=== PATIENT | female | born 2000 | race Caucasian/White ===

== ENCOUNTER 2021-02-13 13:43 | Emergency (ER) | payer SELFPAY ==
[~2021-02-13] VITALS: Ht 147 cm; Wt 43.9 kg
[~2021-02-13 13:43] MED LIST: ONDA8TAB9 PO
--- NOTE | 2021-02-13 14:26 | ED GU-Female ---
General Chief Complaint: - Reproductive Stated Complaint: SPOTTING/CRAMPING ISSUE WITH IUD Nursing Triage Note: PT PRESENTS TO ED VIA POV FROM HOME WITH COMPLAINTS OF SPOTTING/ABDOMINAL PAIN X 2 DAYS AFTER HAVING INTERCOURSE. PT REPORTS SHE TRIED TO FIND HER IUD STRINGS AFTER AND REPORTS SHE HAS NOT BEEN ABLE TO. Source: patient Exam Limitations: no limitations History of Present Illness Date Seen by Provider: Feb 13, 2021 Time Seen by Provider: 14:15 Initial Comments This is a well-appearing 20-year-old female who presented to the ER with complaints of spotting and abdominal cramping 2 days after having intercourse with her boyfriend. States that she does have an IUD and has been present for the past 1-1/2 years. This morning she attempted to find the strings and has not been able to. Allergies and Home Medications Allergies Coded Allergies: No Known Drug Allergies (Unverified , 11/10/09) Patient Home Medication List No Active Prescriptions or Reported Meds Past Juglbqg-Javrfh-Vpkeqa Hx Patient Social History Tobacco Use?: No Substance use?: No Alcohol Use?: Yes Alcohol Frequency: Once in a while Pt feels they are or have been: No Immunizations Up To Date Tetanus Booster (TDap): Less than 5yrs Past Medical History Surgery/Hospitalization HX: SX: T/A Reproductive Disorders: No Female Reproductive Disorders: Denies Family Medical History Cancer Physical Exam Vital Signs Vital Signs - First Documented 02/13/21 13:53 Temp 35.9 Pulse 89 Resp 18 B/P (MAP) 133/87 (102) Pulse Ox 100 Capillary Refill : Less Than 3 Seconds Height, Weight, BMI Height: 4'10" Weight: 80lbs. oz. 36.944464xs; 20.00 BMI Method:Stated Progress/Results/Core Measures Suspected Sepsis SIRS Temperature: Pulse: 89 Respiratory Rate: 18 Laboratory Tests 02/13/21 15:48: White Blood Count 7.9 Blood Pressure 133 /87 Mean: 102 Laboratory Tests 02/13/21 15:48: Creatinine 0.66, Platelet Count 250, Total Bilirubin 0.3 Results/Orders Lab Results Laboratory Tests Test 02/13/21 14:40 02/13/21 15:48 Range/Units Urine Color YELLOW Urine Clarity CLEAR Urine pH 5.5 5-9 Urine Specific [place] <=1.005 1.016-1.022 Urine Protein NEGATIVE NEGATIVE Urine Glucose (UA) NEGATIVE NEGATIVE Urine Ketones NEGATIVE NEGATIVE Urine Nitrite NEGATIVE NEGATIVE Urine Bilirubin NEGATIVE NEGATIVE Urine Urobilinogen 0.2 < = 1.0 MG/DL Urine Leukocyte Esterase TRACE H NEGATIVE Urine RBC (Auto) 2+ H NEGATIVE Urine RBC RARE /HPF Urine WBC RARE /HPF Urine Squamous Epithelial Cells 0-2 /HPF Urine Crystals NONE /LPF Urine Bacteria NEGATIVE /HPF Urine Casts NONE /LPF Urine Mucus NEGATIVE /LPF Urine Culture Indicated NO White Blood Count 7.9 4.3-11.0 10^3/uL Red Blood Count 4.19 3.80-5.11 10^6/uL Hemoglobin 12.5 11.5-16.0 g/dL Hematocrit 39 35-52 % Mean Corpuscular Volume 92 80-99 fL Mean Corpuscular Hemoglobin 30 25-34 pg Mean Corpuscular Hemoglobin Concent 32 32-36 g/dL Red Cell Distribution Width 12.2 10.0-14.5 % Platelet Count 250 130-400 10^3/uL Mean Platelet Volume 9.5 9.0-12.2 fL Immature Granulocyte % (Auto) 1 % Neutrophils (%) (Auto) 66 42-75 % Lymphocytes (%) (Auto) 24 12-44 % Monocytes (%) (Auto) 6 0-12 % Eosinophils (%) (Auto) 3 0-10 % Basophils (%) (Auto) 1 0-10 % Neutrophils # (Auto) 5.2 1.8-7.8 10^3/uL Lymphocytes # (Auto) 1.9 1.0-4.0 10^3/uL Monocytes # (Auto) 0.5 0.0-1.0 10^3/uL Eosinophils # (Auto) 0.2 0.0-0.3 10^3/uL Basophils # (Auto) 0.1 0.0-0.1 10^3/uL Immature Granulocyte # (Auto) 0.1 0.0-0.1 10^3/uL Sodium Level 139 135-145 MMOL/L Potassium Level 3.9 3.6-5.0 MMOL/L Chloride Level 107 98-107 MMOL/L Carbon Dioxide Level 23 21-32 MMOL/L Anion Gap 9 5-14 MMOL/L Blood Urea Nitrogen 13 7-18 MG/DL Creatinine 0.66 0.60-1.30 MG/DL Estimat Glomerular Filtration Rate 113 BUN/Creatinine Ratio 20 Glucose Level 96 70-105 MG/DL Calcium Level 9.5 8.5-10.1 MG/DL Corrected Calcium 9.3 8.5-10.1 MG/DL Total Bilirubin 0.3 0.1-1.0 MG/DL Aspartate Amino Transf (AST/SGOT) 12 5-34 U/L Alanine Aminotransferase (ALT/SGPT) 11 0-55 U/L Alkaline Phosphatase 66 40-136 U/L Total Protein 7.0 6.4-8.2 GM/DL Albumin 4.3 3.2-4.5 GM/DL My Orders Orders - RODRIGO ORTEGA TENNIS DIRECTOR Ua Culture If Indicated (02/13/21 13:49) Pelvis (02/13/21 14:42) Cbc With Automated Diff (02/13/21 15:16) Comprehensive Metabolic Panel (02/13/21 15:16) Vital Signs/I&O 02/13/21 13:53 Temp 35.9 Pulse 89 Resp 18 B/P (MAP) 133/87 (102) Pulse Ox 100 Capillary Refill : Less Than 3 Seconds Blood Pressure Mean: 102 Departure Impression Primary Impression: Abdominal cramping Additional Impression: IUD check up Disposition: 01 HOME, SELF-CARE Condition: Improved Departure-Patient Inst. Decision time for Depature: 16:31 Referrals: [facility] [place] (PCP/Family) Primary Care Physician Patient Instructions: Abdominal Pain, Adult ED, LOCAL PHYSICIAN LIST Add. Discharge Instructions: Plan: 1. Establish with primary care provider of your choice. 2. May take Tylenol or Ibuprofen as needed for pain per package. 3. Return for any new, concerning, or worsening symptoms. All discharge instructions reviewed with patient and/or family. Voiced understa nding. Scripts No Active Prescriptions or Reported Meds RODRIGO ORTEGA TENNIS DIRECTOR Feb 13, 2021 14:26
[2021-02-13 14:54] LABS: BILIRUBIN,URINE NEGATIVE (NEGATIVE); CLARITY,URINE CLEAR; COLOR,URINE YELLOW; GLUCOSE, URINE (UA) NEGATIVE (NEGATIVE); KETONES,URINE NEGATIVE (NEGATIVE); LEUKOCYTE ESTERASE ,URINE TRACE (NEGATIVE); NITRITE,URINE NEGATIVE (NEGATIVE); PH,URINE 5.5 (5-9); PROTEIN,URINE NEGATIVE (NEGATIVE)
--- NOTE | 2021-02-13 15:11 | Diagnostic Imaging Report ---
HISTORY: IUD placement. TECHNIQUE: Frontal view of the pelvis. COMPARISON: None. FINDINGS: The intrauterine device appears to be in appropriate position on this single frontal view. No acute osseous abnormality is seen in the pelvis, and alignment appears normal. IMPRESSION: 1. IUD placement appears normal on this single radiograph. Dictated by: Dictated on workstation # [id number]
[2021-02-13 15:14] LABS: BACTERIA,URINE NEGATIVE /HPF; RBC,URINE RARE /HPF; SQUAMOUS EPITHELIAL CELL,UR 0-2 /HPF; WBC,URINE RARE /HPF
[2021-02-13 15:58] LABS: BASOPHILS # (AUTO) 0.1 10^3/uL (0.0-0.1); BASOPHILS % (AUTO) 1 % (0-10); EOSINOPHILS # (AUTO) 0.2 10^3/uL (0.0-0.3); EOSINOPHILS % (AUTO) 3 % (0-10); HEMATOCRIT 39 % (35-52); HEMOGLOBIN 12.5 g/dL (11.5-16.0); LYMPHOCYTES # (AUTO) 1.9 10^3/uL (1.0-4.0); LYMPHOCYTES % (AUTO) 24 % (12-44); MEAN CORPUSCULAR HEMOGLOBIN 30 pg (25-34); MEAN CORPUSCULAR HGB CONC 32 g/dL (32-36); MEAN CORPUSCULAR VOLUME 92 fL (80-99); MEAN PLATELET VOLUME 9.5 fL (9.0-12.2); MONOCYTES # (AUTO) 0.5 10^3/uL (0.0-1.0); MONOCYTES % (AUTO) 6 % (0-12); NEUTROPHILS # (AUTO) 5.2 10^3/uL (1.8-7.8); NEUTROPHILS % (AUTO) 66 % (42-75); PLATELET COUNT 250 10^3/uL (130-400); WHITE BLOOD COUNT 7.9 10^3/uL (4.3-11.0)
[2021-02-13 16:06] LABS: ALBUMIN 4.3 GM/DL (3.2-4.5); POTASSIUM 3.9 MMOL/L (3.6-5.0)
[2021-02-13 16:07] LABS: CALCIUM 9.5 MG/DL (8.5-10.1)
[2021-02-13 16:10] LABS: BILIRUBIN,TOTAL 0.3 MG/DL (0.1-1.0)
[2021-02-13 16:12] LABS: CREATININE SERUM 0.66 MG/DL (0.60-1.30)
[2021-02-13 16:39] VITALS: BP 105/62
== END 2021-02-13 16:38 | disposition home or self-care (01) ==
LOC: EDUNIT# 13:43 → ER 13:46
DX: R10.9 Unspecified abdominal pain (principal)
CPT/HCPCS: 36415; 72170; 80053; 81000; 85025

== ENCOUNTER 2021-10-05 15:33 | Emergency (ER) | payer MEDICAID ==
[~2021-10-05] VITALS: Ht 147.3 cm; Wt 44.0 kg
--- NOTE | 2021-10-05 16:26 | ED GU-Female ---
General Chief Complaint: - Reproductive Stated Complaint: VAGINAL PAIN Source: patient Exam Limitations: no limitations (TON SINGER) History of Present Illness Date Seen by Provider: Oct 05, 2021 Time Seen by Provider: 16:23 Initial Comments Patient is a 20-year-old female who presents the ED with concern for vaginal pain, lower pelvic pain for the past week. Described as crampy with intermittent sharp pain without radiation. She reported vaginal discharge whitish with a mix of brown without any odor. Currently sexually active. She reports pain after sexual intercourse. She denies any urinary symptoms or concern for . She does have a IUD and reports pain and discomfort with her IUD over the past few months. This pain has become worse over the past week. She is requesting her IUD removed. She states she is able to feel the string. She states she got the IUD 3 years ago. She has not had her menstrual cycle since August. Denies fever, chills, nausea, vomiting, diarrhea. She went to [facility] who told her to come to the ED (TON SINGER) Allergies and Home Medications Allergies Coded Allergies: No Known Drug Allergies (Unverified , 11/10/09) Patient Home Medication List Home Medication List Reviewed: Yes (TON SINGER) No Active Prescriptions or Reported Meds Review of Systems Review of Systems Constitutional: No chills, No diaphoresis, No malaise, No weakness EENTM: No hearing loss, No ear pain, No blurred vision, No double vision Respiratory: No cough, No dyspnea on exertion Cardiovascular: No chest pain, No edema Gastrointestinal: No abdominal pain, No diarrhea, No nausea, No vomiting Genitourinary: denies burning, denies discharge, denies dysuria, denies frequency; other (vaginal discharge) Musculoskeletal: No back pain, No joint pain Skin: No change in color, No change in hair/nails (TON SINGER) All Other Systemes Reviewed Negative Unless Noted: Yes (TON SINGER) Past Mnccgqq-Dcrikr-Sykxeu Hx Patient Social History Tobacco Use?: No Smoking Status: Never a Smoker Smokeless Tobacco Frequency: Never a User Use of E-Cig and/or Vaping dev: No Use of E-Cig and/or Vaping Rikki: Never a User Substance use?: Yes Substance type: Marijuana Substance frequency: Daily Alcohol Use?: Yes Alcohol Frequency: Couple times a week Pt feels they are or have been: No (TON SINGER) Immunizations Up To Date Tetanus Booster (TDap): Less than 5yrs (TON SINGER) Past Medical History Surgery/Hospitalization HX: SX: T/A Reproductive Disorders: No Female Reproductive Disorders: Denies (TON SINGER) Family Medical History Cancer (TON SINGER) Physical Exam Vital Signs Vital Signs - First Documented 10/05/21 15:54 Temp 36.6 Pulse 74 Resp 19 B/P (MAP) 139/72 (94) O2 Delivery Room Air (BEN HARE MD) Vital Signs Capillary Refill : (TON SINGER) Height, Weight, BMI Height: 4'10" Weight: 80lbs. oz. 36.415262gh; 20.00 BMI Method:Stated General Appearance: WD/WN, no apparent distress HEENT: PERRL/EOMI, normal ENT inspection, TMs normal, pharynx normal Neck: non-tender, full range of motion, supple, normal inspection Cardiovascular: regular rate, rhythm, no edema, no gallop, no JVD Respiratory: chest non-tender, lungs clear, normal breath sounds, no respiratory distress Gastrointestinal: normal bowel sounds, soft, no organomegaly, no pulsatile mass, other (Left lower quadrant tenderness) Back: normal inspection, no CVA tenderness, no vertebral tenderness Extremities: normal range of motion, non-tender, normal inspection, no pedal edema Neurologic/Psychiatric: recruiting team lead II-XII nml as tested, no motor/sensory deficits, alert, normal mood/affect, oriented x 3 Skin: normal color, warm/dry (TON SINGER) Progress/Results/Core Measures Suspected Sepsis SIRS Temperature: Pulse: Respiratory Rate: Blood Pressure / Mean: (OTN SINGER) Results/Orders Lab Results Laboratory Tests Test 10/05/21 15:55 10/05/21 16:21 10/05/21 16:24 Range/Units Urine Color YELLOW Urine Clarity CLEAR Urine pH 6.0 5-9 Urine Specific [place] >=1.030 1.016-1.022 Urine Protein NEGATIVE NEGATIVE Urine Glucose (UA) NEGATIVE NEGATIVE Urine Ketones NEGATIVE NEGATIVE Urine Nitrite NEGATIVE NEGATIVE Urine Bilirubin NEGATIVE NEGATIVE Urine Urobilinogen 0.2 < = 1.0 MG/DL Urine Leukocyte Esterase NEGATIVE NEGATIVE Urine RBC (Auto) TRACE-I H NEGATIVE Urine RBC 0-2 /HPF Urine WBC 2-5 /HPF Urine Squamous Epithelial Cells 5-10 /HPF Urine Renal Epithelial Cells NONE /HPF Urine Crystals NONE /LPF Urine Bacteria MODERATE H /HPF Urine Casts NONE /LPF Urine Mucus LARGE H /LPF Urine Culture Indicated YES Urine Test NEGATIVE NEGATIVE (BEN HARE MD) Micro Results Microbiology 10/05/21 Wet Prep - Final, Complete (BEN HARE MD) Vital Signs/I&O 10/05/21 15:54 Temp 36.6 Pulse 74 Resp 19 B/P (MAP) 139/72 (94) O2 Delivery Room Air (BEN HARE MD) Vital Signs/I&O Capillary Refill : (TON SINGER) Departure Communication (PCP) Intrauterine device noted on x-ray. She states she is able to feel the string. Refused pelvic exam. Boyfriend at bedside. She is not concern for sexual transmitted infection but reports discharge for the past week with some spotting. Negative for . Urinalysis negative for infection. Patient is having pelvic discomfort with similar type pain then in the past. She is wanting her IUD removed. Discussed this is typically is done outpatient with Imaging Manager. No evidence suggesting uterine rupture or displaced IUD. No evidence suggesting pelvic infection at this time. Avoid sexual course until results of cultures for gonorrhea and chlamydia. She was not treated prophylactically. She does not appear in acute distress. No surgical abdomen. Return precaution were discussed with patient. (TON SINGER) Impression Primary Impression: Pelvic pain Disposition: 01 HOME, SELF-CARE Condition: Stable Departure-Patient Inst. Decision time for Depature: 17:18 (TON SINGER) Referrals: [facility] (PCP/Family) Primary Care Physician DANILO THORNE DO Patient Instructions: Pelvic Pain ED Add. Discharge Instructions: Anti-inflammatories for pain. Follow-up with gynecology for further evaluation All discharge instructions reviewed with patient and/or family. Voiced understanding. Scripts No Active Prescriptions or Reported Meds ATTENDING PHYSICIAN NOTE: I was physically present as attending physician in the emergency department during the care of this patient, but I was not directly involved in the decision making or delivery of care for this patient. (BEN HARE MD) TON SINGER Oct 05, 2021 16:26 BEN HARE MD Oct 05, 2021 21:03
[2021-10-05 16:40] LABS: BILIRUBIN,URINE NEGATIVE (NEGATIVE); CLARITY,URINE CLEAR; COLOR,URINE YELLOW; GLUCOSE, URINE (UA) NEGATIVE (NEGATIVE); KETONES,URINE NEGATIVE (NEGATIVE); LEUKOCYTE ESTERASE ,URINE NEGATIVE (NEGATIVE); NITRITE,URINE NEGATIVE (NEGATIVE); PROTEIN,URINE NEGATIVE (NEGATIVE)
[2021-10-05 16:52] LABS: BACTERIA,URINE MODERATE /HPF; RBC,URINE 0-2 /HPF
--- NOTE | 2021-10-05 17:11 | Diagnostic Imaging Report ---
HISTORY: Left lower quadrant abdominal pain. COMPARISON: 04/09/2013 TECHNIQUE: Frontal view of the abdomen. FINDINGS: Bowel loops are nondistended without obstruction. There is moderate stool in the colon. No large collection of free air seen. An intrauterine device is noted. No acute osseous abnormality is seen. IMPRESSION:. Moderate stool in the colon, please correlate with any history of constipation. Dictated by: Dictated on workstation # [id number]
[2021-10-05 17:40] VITALS: BP 124/65
== END 2021-10-05 17:40 | disposition home or self-care (01) ==
LOC: EDUNIT# 15:33 → ER 15:36
DX: R10.2 Pelvic and perineal pain (principal); Z97.5 Presence of (intrauterine) contraceptive device; Z32.02 Encounter for pregnancy test, result negative
CPT/HCPCS: 36415; 74018; 81000; 84703; 87088; 87210; 87491; 87591; 99282

== ENCOUNTER 2022-07-14 11:57 | Emergency (ER) | payer MEDICAID ==
[~2022-07-14] VITALS: Ht 147 cm; Wt 45.3 kg
[2022-07-14 12:23] LABS: BASOPHILS % (AUTO) 0 % (0-10); EOSINOPHILS # (AUTO) 0.1 10^3/uL (0.0-0.3); EOSINOPHILS % (AUTO) 1 % (0-10); HEMATOCRIT 38 % (35-52); HEMOGLOBIN 12.5 g/dL (11.5-16.0); LYMPHOCYTES # (AUTO) 1.5 10^3/uL (1.0-4.0); LYMPHOCYTES % (AUTO) 22 % (12-44); MEAN CORPUSCULAR HEMOGLOBIN 30 pg (25-34); MEAN CORPUSCULAR HGB CONC 33 g/dL (32-36); MEAN CORPUSCULAR VOLUME 90 fL (80-99); MEAN PLATELET VOLUME 9.6 fL (9.0-12.2); MONOCYTES # (AUTO) 0.4 10^3/uL (0.0-1.0); MONOCYTES % (AUTO) 5 % (0-12); NEUTROPHILS # (AUTO) 4.9 10^3/uL (1.8-7.8); NEUTROPHILS % (AUTO) 71 % (42-75); PLATELET COUNT 221 10^3/uL (130-400); WHITE BLOOD COUNT 6.9 10^3/uL (4.3-11.0)
[2022-07-14 12:32] LABS: ALBUMIN 4.8 GM/DL (3.2-4.5)
[2022-07-14 12:33] LABS: CHLORIDE 107 MMOL/L (98-107); POTASSIUM 3.5 MMOL/L (3.6-5.0); SODIUM 141 MMOL/L (135-145)
[2022-07-14 12:34] LABS: CALCIUM 9.3 MG/DL (8.5-10.1)
[2022-07-14 12:35] LABS: BILIRUBIN,URINE NEGATIVE (NEGATIVE); CLARITY,URINE SL CLOUDY; COLOR,URINE YELLOW; GLUCOSE, URINE (UA) NEGATIVE (NEGATIVE); KETONES,URINE NEGATIVE (NEGATIVE); LEUKOCYTE ESTERASE ,URINE TRACE (NEGATIVE); NITRITE,URINE NEGATIVE (NEGATIVE); PROTEIN,URINE TRACE (NEGATIVE)
[2022-07-14 12:35] LABS: GLUCOSE 96 MG/DL (70-105); TOTAL PROTEIN 7.2 GM/DL (6.4-8.2)
[2022-07-14 12:36] LABS: CARBON DIOXIDE 25 MMOL/L (21-32)
[2022-07-14 12:37] LABS: BILIRUBIN,TOTAL 0.7 MG/DL (0.1-1.0)
[2022-07-14 12:38] LABS: ALKALINE PHOSPHATASE 50 U/L (40-136)
[2022-07-14 12:39] LABS: CREATININE SERUM 0.67 MG/DL (0.60-1.30); GFR ESTIMATED 127
[2022-07-14 12:40] LABS: BUN/CREATININE RATIO 13
[2022-07-14 12:42] LABS: ALANINE AMINOTRANSFERASE 17 U/L (0-55)
--- NOTE | 2022-07-14 12:43 | ED GU-Female ---
General Chief Complaint: OB < 20 WEEKS Stated Complaint: 7 WEEKS | VAG BLEEDING Nursing Triage Note: PATIENT AMBULATORY TO ER ROOM 9 W C/O VAGINAL BLEEDING. PATIENT SAT DOWN IN THE CAR AND FELT A "GUSH" she wiped with a napkin and there was blood on the napkin 15 minutes ago. Patient states she's approx 7 weeks . Patient put a panty liner in to come to the ER. There is no blood currently on the panty liner. Source: patient Exam Limitations: no limitations History of Present Illness Date Seen by Provider: Jul 14, 2022 Time Seen by Provider: 12:08 Initial Comments 21-year-old G2, P1 female presents to the ED with complaints of vaginal bleeding starting today. She states she is approximately 7 or 8 weeks , states her last menstrual period was either the end of April or the beginning of May. She reports today that she was sitting in the car, and felt a gush in the vaginal region, she checked it with a napkin and there was blood on the napkin. She also reports sharp pains in bilateral lower abdomen. Reports that 1 to 2 weeks ago she was having brown discharge, states this stopped, then today she had the bright red blood. She reports she had some nausea earlier this morning, no vomiting. She denies fevers, chest pain, shortness of air, dysuria. She has not had an ultrasound completed yet. She is unsure if they have done an hCG level. She currently only takes a . Allergies and Home Medications Allergies Coded Allergies: No Known Drug Allergies (Unverified , 11/10/09) Patient Home Medication List Home Medication List Reviewed: Yes Cephalexin (Cephalexin) 500 Mg Tablet, 500 MG PO TID Prescribed by: Carol Winston on 07/14/22 1613 Review of Systems Review of Systems Constitutional: see HPI Past Vvrnstz-Faelpl-Egjqvx Hx Patient Social History Tobacco Use?: No Substance use?: Yes Substance type: Marijuana Substance frequency: Couple times a week Alcohol Use?: No Immunizations Up To Date Tetanus Booster (TDap): Less than 5yrs Past Medical History Surgery/Hospitalization HX: SX: T/A Reproductive Disorders: No Female Reproductive Disorders: Denies Family Medical History Cancer Physical Exam Vital Signs Vital Signs - First Documented 07/14/22 12:01 Temp 36.8 Pulse 71 Resp 18 B/P (MAP) 127/82 (97) Pulse Ox 97 O2 Delivery Room Air Capillary Refill : Less Than 3 Seconds Height, Weight, BMI Height: 4'10" Weight: 80lbs. oz. 36.284376og; 20.00 BMI Method:Stated General Appearance: WD/WN, no apparent distress Neck: supple, normal inspection Cardiovascular: regular rate, rhythm, no edema, no gallop, no JVD, no murmur Respiratory: lungs clear, normal breath sounds, no respiratory distress, no accessory muscle use Gastrointestinal: normal bowel sounds, non tender, soft, no organomegaly, no pulsatile mass Pelvic: normal external exam, normal adnexa, no cerv. motion tender, no masses, discharge, vaginal bleeding (Mild bleeding, 1 small clot removed) Extremities: normal range of motion, normal inspection Neurologic/Psychiatric: alert, normal mood/affect Skin: normal color, warm/dry Progress/Results/Core Measures Suspected Sepsis SIRS Temperature: Pulse: 71 Respiratory Rate: 18 Laboratory Tests 07/14/22 12:15: White Blood Count 6.9 Blood Pressure 127 /82 Mean: 97 Laboratory Tests 07/14/22 12:15: Creatinine 0.67, Platelet Count 221, Total Bilirubin 0.7 Results/Orders Lab Results Laboratory Tests Test 07/14/22 12:15 07/14/22 12:22 07/14/22 15:29 Range/Units White Blood Count 6.9 4.3-11.0 10^3/uL Red Blood Count 4.21 3.80-5.11 10^6/uL Hemoglobin 12.5 11.5-16.0 g/dL Hematocrit 38 35-52 % Mean Corpuscular Volume 90 80-99 fL Mean Corpuscular Hemoglobin 30 25-34 pg Mean Corpuscular Hemoglobin Concent 33 32-36 g/dL Red Cell Distribution Width 12.7 10.0-14.5 % Platelet Count 221 130-400 10^3/uL Mean Platelet Volume 9.6 9.0-12.2 fL Immature Granulocyte % (Auto) 0 % Neutrophils (%) (Auto) 71 42-75 % Lymphocytes (%) (Auto) 22 12-44 % Monocytes (%) (Auto) 5 0-12 % Eosinophils (%) (Auto) 1 0-10 % Basophils (%) (Auto) 0 0-10 % Neutrophils # (Auto) 4.9 1.8-7.8 10^3/uL Lymphocytes # (Auto) 1.5 1.0-4.0 10^3/uL Monocytes # (Auto) 0.4 0.0-1.0 10^3/uL Eosinophils # (Auto) 0.1 0.0-0.3 10^3/uL Basophils # (Auto) 0.0 0.0-0.1 10^3/uL Immature Granulocyte # (Auto) 0.0 0.0-0.1 10^3/uL Sodium Level 141 135-145 MMOL/L Potassium Level 3.5 L 3.6-5.0 MMOL/L Chloride Level 107 98-107 MMOL/L Carbon Dioxide Level 25 21-32 MMOL/L Anion Gap 9 5-14 MMOL/L Blood Urea Nitrogen 9 7-18 MG/DL Creatinine 0.67 0.60-1.30 MG/DL Estimat Glomerular Filtration Rate 127 BUN/Creatinine Ratio 13 Glucose Level 96 70-105 MG/DL Calcium Level 9.3 8.5-10.1 MG/DL Corrected Calcium 8.5-10.1 MG/DL Total Bilirubin 0.7 0.1-1.0 MG/DL Aspartate Amino Transf (AST/SGOT) 16 5-34 U/L Alanine Aminotransferase (ALT/SGPT) 17 0-55 U/L Alkaline Phosphatase 50 40-136 U/L Total Protein 7.2 6.4-8.2 GM/DL Albumin 4.8 H 3.2-4.5 GM/DL Human Chorionic Gonadotropin, Quant 29246 H <5 MIU/ML Urine Color YELLOW Urine Clarity SL CLOUDY Urine pH 6.0 5-9 Urine Specific [place] >=1.030 1.016-1.022 Urine Protein TRACE H NEGATIVE Urine Glucose (UA) NEGATIVE NEGATIVE Urine Ketones NEGATIVE NEGATIVE Urine Nitrite NEGATIVE NEGATIVE Urine Bilirubin NEGATIVE NEGATIVE Urine Urobilinogen 0.2 < = 1.0 MG/DL Urine Leukocyte Esterase TRACE H NEGATIVE Urine RBC (Auto) 3+ H NEGATIVE Urine RBC 2-5 H /HPF Urine WBC 5-10 H /HPF Urine Squamous Epithelial Cells 10-25 H /HPF Urine Crystals NONE /LPF Urine Bacteria MODERATE H /HPF Urine Casts NONE /LPF Urine Mucus SMALL H /LPF Urine Culture Indicated YES Micro Results Microbiology 07/14/22 Wet Prep - Final, Complete My Orders Orders - CAROL WINSTON APRN Cbc With Automated Diff (07/14/22 12:08) Hcg,Quantitative (07/14/22 12:08) Abo Rh Type (07/14/22 12:08) Ed Iv/Invasive Line Start (07/14/22 12:08) Comprehensive Metabolic Panel (07/14/22 12:08) Ua Culture If Indicated (07/14/22 12:17) Urine Culture (07/14/22 12:22) Us Ob<14 Wks Sngle W/Transvag (07/14/22 12:08) Wet Prep (07/14/22 15:31) Neisseria Gonorrhea Swab (07/14/22 15:31) Chlamydia Trachomatis Swab (07/14/22 15:31) Vital Signs/I&O 07/14/22 07/14/22 12:01 16:23 Temp 36.8 Pulse 71 71 Resp 18 18 B/P (MAP) 127/82 (97) 124/61 Pulse Ox 97 97 O2 Delivery Room Air Room Air Capillary Refill : Less Than 3 Seconds Blood Pressure Mean: 97 Progress Note : Time: 12:30 Progress Note Patient seen and evaluated, resting comfortably bed, no acute distress. Based on exam and symptoms, differential diagnosis includes but is not limited to spontaneous , threatened , ectopic , UTI, PID. Work-up initiated including CBC, CMP, UA, hCG, type and screen, ultrasound. 1522 labs and ultrasound reviewed. CBC shows normal WBC 6.9, normal hemoglobin 12.5. CMP shows slightly low potassium 3.5. hCG 14,267. These results were discussed with patient. Recommend patient increase potassium in her diet, will not give oral potassium due to nausea. Urinalysis shows trace leukocytes, 3+ RBC, 5-10 WBC, 10-25 squamous epithelial cells, and moderate bacteria. Will treat for UTI. Ultrasound reviewed. Gestational sac noted, no pole or yolk sac. Patient measures at 6 weeks and 2 days. It could be too early for pole and yoke sac. Also noted possible subchorionic hemorrhage. This could be another reason for her bleeding. Results discussed with patient. Instructed patient that she will need a repeat hCG and ultrasound completed. Will perform pelvic exam. 1531 pelvic exam completed, wet mount and gonorrhea and chlamydia testing ordered. Small amount of blood noted in vaginal vault, 1 small blood clot removed. Clear vaginal discharge noted as well. 1615 wet mount reviewed. Negative for WBC, clue cells, trichomonas, yeast. Results discussed with patient. Will discharge patient with antibiotic for UTI. Patient instructed to come back on Saturday to have her hCG redrawn, and to call her OB on Saturday to schedule a repeat ultrasound. Patient verbalized understanding. Return precautions provided. Departure Impression Primary Impression: Vaginal bleeding affecting early Additional Impressions: Urinary tract infection Threatened Disposition: HOME, SELF-CARE Condition: Stable Departure-Patient Inst. Decision time for Depature: 16:15 Referrals: DANILO THORNE DO (PCP/Family) Primary Care Physician Patient Instructions: Threatened Miscarriage (DC) Add. Discharge Instructions: Complete full course of antibiotic as prescribed. Follow-up on Saturday to have your hCG level rechecked. Call Dwaine's office on Saturday to schedule a follow-up appointment and to schedule a repeat ultrasound. No heavy lifting until you are cleared by OB. Return if experience worsening vaginal bleeding, you are saturating a pad an hour for several hours, you become dizzy, lightheaded, short of breath, or have chest pain, or any other new, concerning, or worsening symptoms. All discharge instructions reviewed with patient and/or family. Voiced understanding. Scripts Cephalexin (Cephalexin) 500 Mg Tablet 500 MG PO TID for 7 Days, #21 TAB 0 Refills Prov: CAROL WINSTON APRN 07/14/22 Work/School Note: Work Release Form Date Seen in the Emergency Department: Jul 14, 2022 Return to Work: Jul 15, 2022 Restrictions: Need Release from Doctor Other Restrictions Listed Below: No lifting over 5 pounds until cleared by doctor. CAROL WINSTON APRN Jul 14, 2022 12:43
[2022-07-14 12:45] LABS: BACTERIA,URINE MODERATE /HPF
--- NOTE | 2022-07-14 15:03 | Diagnostic Imaging Report ---
INDICATION: Vaginal bleeding COMPARISON: None available. TECHNIQUE: 1st trimester OB PERFORMED on 07/14/2022 FINDINGS: A round anechoic fluid collection is identified within the central aspect of the uterus measuring 1.5 x 1.5 x 1.3 cm. This could relate to a gestational sac within the endometrial cavity with an estimated gestational age of 6 weeks and 2 days. No definite pole or yolk sac identified. Small hypoechoic region underlying the gestational sac is present. No focal uterine mass. The bilateral ovaries are unremarkable. Vascular flow is noted within bilateral ovaries. Trace free fluid lower pelvis. IMPRESSION: Rounded cystic structure within the central aspect of the uterus. This is favored related to a gestational sac an estimated gestational age of 6 weeks and 2 days, though no definite pole or yolk sac is noted. Lack of pole may simply relate to early gestational age, though blighted ovum would be an additional consideration. Recommend close follow-up ultrasound and beta hCG levels within the next 3-5 days. Trace free fluid within the lower pelvis. Small amount of hypoechoic fluid underlying the presumed gestational sac, likely related to a small subchorionic hemorrhage. Additional findings as above. Dictated by: Dictated on workstation # [id number]
[2022-07-14] MEDS ORDERED: CEPH500T PO (16:13)
[2022-07-14 16:23] VITALS: BP 124/61
== END 2022-07-14 16:23 | disposition home or self-care (01) ==
LOC: EDUNIT# 11:57 → ER 11:59
DX: O20.0 Threatened abortion (principal); O23.41 Unspecified infection of urinary tract in pregnancy, first trimester; O99.281 Endocrine, nutritional and metabolic diseases complicating pregnancy, first trimester; N39.0 Urinary tract infection, site not specified; E87.6 Hypokalemia; Z28.310 Unvaccinated for COVID-19; Z3A.01 Less than 8 weeks gestation of pregnancy
CPT/HCPCS: 36415; 76801; 76817; 80053; 81000; 84702; 85025; 86900; 86901; 87088; 87210; 87491; 87591

== ENCOUNTER 2022-07-15 19:08 | Emergency (ER) | payer MEDICAID ==
[~2022-07-15 19:08] MED LIST changes: +CEPH500T PO
[2022-07-15 20:09] LABS: BASOPHILS % (AUTO) 0 % (0-10); EOSINOPHILS # (AUTO) 0.1 10^3/uL (0.0-0.3); EOSINOPHILS % (AUTO) 2 % (0-10); HEMATOCRIT 35 % (35-52); HEMOGLOBIN 11.5 g/dL (11.5-16.0); LYMPHOCYTES % (AUTO) 22 % (12-44); MEAN CORPUSCULAR HEMOGLOBIN 30 pg (25-34); MEAN CORPUSCULAR HGB CONC 33 g/dL (32-36); MEAN CORPUSCULAR VOLUME 89 fL (80-99); MEAN PLATELET VOLUME 9.5 fL (9.0-12.2); MONOCYTES # (AUTO) 0.5 10^3/uL (0.0-1.0); MONOCYTES % (AUTO) 5 % (0-12); NEUTROPHILS # (AUTO) 6.3 10^3/uL (1.8-7.8); NEUTROPHILS % (AUTO) 71 % (42-75); PLATELET COUNT 232 10^3/uL (130-400); WHITE BLOOD COUNT 8.9 10^3/uL (4.3-11.0)
--- NOTE | 2022-07-15 20:12 | ED GU-Female ---
General Chief Complaint: OB < 20 WEEKS Stated Complaint: BLEEDING Source: patient Exam Limitations: no limitations History of Present Illness Date Seen by Provider: Jul 15, 2022 Time Seen by Provider: 19:18 Initial Comments 21-year-old G2, P1 female presents to the ED with reports of vaginal bleeding starting this morning. She was seen yesterday for vaginal bleeding as well. Her ultrasound showed 6-week 2-day gestational sac, no pole, no yolk sac, and a subchorionic hemorrhage. Her hCG yesterday was 14,000. She reports vaginal bleeding started again this morning, and has progressively gotten worse throughout the day. She has not been wearing pads, so unsure how many pads she has been going through. States she did wear 1 large pad earlier and stopped it immediately. States she currently has a burp rag that she is using, believes it is full of blood. She reports she is now feeling dizzy and lightheaded. Allergies and Home Medications Allergies Coded Allergies: No Known Drug Allergies (Unverified , 11/10/09) Patient Home Medication List Home Medication List Reviewed: Yes Cephalexin (Cephalexin) 500 Mg Tablet, 500 MG PO TID Prescribed by: Carol Winston on 07/14/22 1613 Review of Systems Review of Systems Constitutional: see HPI Past [id number] Hx Immunizations Up To Date Tetanus Booster (TDap): Less than 5yrs Past Medical History Surgery/Hospitalization HX: SX: T/A Reproductive Disorders: No Female Reproductive Disorders: Denies Family Medical History Cancer Physical Exam Vital Signs Vital Signs - First Documented 07/15/22 19:54 Temp 36.2 Pulse 97 Resp 14 B/P (MAP) 102/61 (75) Pulse Ox 98 O2 Delivery Room Air Capillary Refill : Height, Weight, BMI Height: 4'10" Weight: 80lbs. oz. [id number]; 20.00 BMI Method:Stated General Appearance: WD/WN, no apparent distress Neck: supple, normal inspection Cardiovascular: regular rate, rhythm, no edema, no gallop, no JVD, no murmur Respiratory: lungs clear, normal breath sounds, no respiratory distress, no accessory muscle use Extremities: normal range of motion, normal inspection Neurologic/Psychiatric: alert, normal mood/affect Skin: normal color, warm/dry Progress/Results/Core Measures Suspected Sepsis SIRS Temperature: Pulse: Respiratory Rate: Laboratory Tests 07/15/22 20:02: White Blood Count 8.9 Blood Pressure / Mean: Laboratory Tests 07/15/22 20:02: Creatinine 0.70, Platelet Count 232, Total Bilirubin 0.5 Results/Orders Lab Results Laboratory Tests Test 07/15/22 20:02 Range/Units White Blood Count 8.9 4.3-11.0 10^3/uL Red Blood Count 3.90 3.80-5.11 10^6/uL Hemoglobin 11.5 11.5-16.0 g/dL Hematocrit 35 35-52 % Mean Corpuscular Volume 89 80-99 fL Mean Corpuscular Hemoglobin 30 25-34 pg Mean Corpuscular Hemoglobin Concent 33 32-36 g/dL Red Cell Distribution Width 12.5 10.0-14.5 % Platelet Count 232 130-400 10^3/uL Mean Platelet Volume 9.5 9.0-12.2 fL Immature Granulocyte % (Auto) 0 % Neutrophils (%) (Auto) 71 42-75 % Lymphocytes (%) (Auto) 22 12-44 % Monocytes (%) (Auto) 5 0-12 % Eosinophils (%) (Auto) 2 0-10 % Basophils (%) (Auto) 0 0-10 % Neutrophils # (Auto) 6.3 1.8-7.8 10^3/uL Lymphocytes # (Auto) 2.0 1.0-4.0 10^3/uL Monocytes # (Auto) 0.5 0.0-1.0 10^3/uL Eosinophils # (Auto) 0.1 0.0-0.3 10^3/uL Basophils # (Auto) 0.0 0.0-0.1 10^3/uL Immature Granulocyte # (Auto) 0.0 0.0-0.1 10^3/uL Sodium Level 141 135-145 MMOL/L Potassium Level 3.6 3.6-5.0 MMOL/L Chloride Level 105 98-107 MMOL/L Carbon Dioxide Level 22 21-32 MMOL/L Anion Gap 14 5-14 MMOL/L Blood Urea Nitrogen 7 7-18 MG/DL Creatinine 0.70 0.60-1.30 MG/DL Estimat Glomerular Filtration Rate 125 BUN/Creatinine Ratio 10 Glucose Level 104 70-105 MG/DL Calcium Level 9.5 8.5-10.1 MG/DL Corrected Calcium 9.1 8.5-10.1 MG/DL Total Bilirubin 0.5 0.1-1.0 MG/DL Aspartate Amino Transf (AST/SGOT) 16 5-34 U/L Alanine Aminotransferase (ALT/SGPT) 17 0-55 U/L Alkaline Phosphatase 52 40-136 U/L Total Protein 6.9 6.4-8.2 GM/DL Albumin 4.5 3.2-4.5 GM/DL Human Chorionic Gonadotropin, Quant 51178 H <5 MIU/ML My Orders Orders - CAROL WINSTON APRN Cbc With Automated Diff (07/15/22 19:15) Hcg,Quantitative (07/15/22 19:15) Comprehensive Metabolic Panel (07/15/22 19:15) Rho(D) Immune Globulin (Rhophylac) (07/15/22 19:30) Rh Immune Globulin Rhophylac (07/15/22 20:40) Rhogam Administration (07/15/22 20:40) Medications Given in ED Current Medications Medications Dose Ordered Sig/Nicol Route Start Time Stop Time Status Last Admin Dose Admin Rho Immune Globulin 2 ML = 1,500 UNITS ONCE ONCE IM/IV 07/15/22 19:30 07/15/22 19:31 DC 07/15/22 21:25 1,500 UNIT Vital Signs/I&O 07/15/22 19:54 Temp 36.2 Pulse 97 Resp 14 B/P (MAP) 102/61 (75) Pulse Ox 98 O2 Delivery Room Air Capillary Refill : Progress Note : Time: 20:11 Progress Note Patient seen and evaluated, resting comfortably in bed, no distress. Based on exam and symptoms, work-up initiated including CBC, CMP, hCG. RhoGAM ordered for Rh negative status. Departure Impression Primary Impression: Miscarriage Disposition: 01 HOME, SELF-CARE Condition: Stable Departure-Patient Inst. Decision time for Depature: 21:32 Referrals: DANILO THORNE DO (PCP/Family) Primary Care Physician Patient Instructions: Miscarriage (DC) Add. Discharge Instructions: Call Dr. Thorne's office in the morning to schedule follow-up. You will still continue to have some bleeding. It should decrease over time. Your pain should also improve, but you may take 800 mg of ibuprofen with food as needed for pain. Return if you are saturating a heavy pad every hour for several hours, you feel severely lightheaded or dizzy, you develop chest pain, shortness of breath, or any other new, concerning, or worsening symptoms. All discharge instructions reviewed with patient and/or family. Voiced understanding. CAROL WINSTON APRN Jul 15, 2022 20:12
[2022-07-15 20:26] LABS: ALBUMIN 4.5 GM/DL (3.2-4.5); BILIRUBIN,TOTAL 0.5 MG/DL (0.1-1.0); CALCIUM 9.5 MG/DL (8.5-10.1); CREATININE SERUM 0.7 MG/DL (0.60-1.30); POTASSIUM 3.6 MMOL/L (3.6-5.0); TOTAL PROTEIN 6.9 GM/DL (6.4-8.2)
[2022-07-15] MEDS: RHO(D) immune globulin 1,500 UNIT/2 ML (Rhogam/Rhophylac) IM/IV ONE ×2 (20:54→21:25)
[2022-07-15 21:51] VITALS: BP 131/80
== END 2022-07-15 21:56 | disposition home or self-care (01) ==
LOC: EDUNIT# 19:08 → ER 19:10
DX: O03.9 Complete or unspecified spontaneous abortion without complication (principal); Z28.310 Unvaccinated for COVID-19
CPT/HCPCS: 36415; 80053; 84702; 85025; 96372